=== PATIENT | male | born 1930 | race African-American/Black ===

== ENCOUNTER 2016-10-16 10:59 | Day surgery (SDC) | payer MEDICARE, OTHER ==
--- NOTE | ~2016-10-16 | OP ---
Record Of Operation [facility] [address] [place]. [address] NAME: VU CHAPA SR : 29 STATUS : [facility]#: [id number] AGE: 86 ADM/REG DATE : 10/16/16 MR#: [id number] REPORT SERV DATE: 10/16/16 DICTATED BY: MARISA GAITAN DATE: 10/16/16 REPORT STATUS : Draft TRANSCRIBED BY: MODL DATE: 10/16/16 DATE OF PROCEDURE: 10/16/2016 SURGEON: Marisa Gaitan M.D. GERIATRIC CASE MANAGER: None. PREPROCEDURE DIAGNOSIS: Critical limb ischemia of the left leg. POSTPROCEDURE DIAGNOSES: 1. Superficial femoral artery, popliteal, and proximal anterior tibial artery occlusion. 2. Posterior tibial artery occlusion. 3. Peroneal artery occlusion proximally with distal reconstitution. PROCEDURES PERFORMED: 1. Ultrasound-guided access to the right common femoral artery. 2. Aortogram. 3. Left lower extremity arteriogram. 4. Angioplasty of the anterior tibial artery using a 3 mm balloon. 5. Angioplasty of the SFA and popliteal artery using a 5 mm balloon. ANESTHESIA: MAC and local. SPECIMENS: None. BLOOD LOSS: Minimal. COMPLICATIONS: None. 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 He presented to the office with wounds on his left foot and obvious decreased pulses. He was offered arteriogram. Risks, benefits, and alternatives were discussed. They understood and wished to proceed. OPERATIVE COURSE: The patient was brought to the operating, placed in supine position on the operating room table. The patient had MAC anesthetic without complications. Bilateral groins were prepped and draped in sterile fashion. A time-out was performed. Identified the correct patient, procedure, and site. We began by using ultrasound to identify the right common femoral artery, was patent with [id number] disease. We anesthetized the skin and accessed the artery under ultrasound guidance. A copy of this picture was placed on the chart for review. Once we had access, a wire was passed through the abdominal aorta. The needle was removed. We placed a 5-Ethiopian sheath over the wire. We passed the UF catheter, placed it at the L1 vertebral level, and performed aortography demonstrating patency of the aortoiliac segment without flow-limiting stenosis in the aorta, common, or external iliac arteries. We then passed a wire and catheter down the left external iliac level, performed left lower extremity arteriogram. This demonstrated patency of the common Record Of Operation [facility] [address] [place]. [address] NAME: VU CHAPA SR : 29 STATUS : [facility] PAT#: [id number] AGE: 86 ADM/REG DATE : 10/16/16 MR#: [id number] REPORT SERV DATE: 10/16/16 DICTATED BY: MARISA GAITAN DATE: 10/16/16 REPORT STATUS : Draft TRANSCRIBED BY: MODL DATE: 10/16/16 femoral and profunda femoris artery with occlusion of the SFA, popliteal, and below-knee popliteal arteries. There was reconstitution through collaterals of the distal peroneal artery only. No other vessels were seen. We gave IV heparin and allowed adequate time for circulation. We sized up to a 6-Ethiopian up and over sheath placed at the left external iliac artery. We then brought a wire and trailblazer catheter and we were able to engage into the SFA. It passed relatively easy into the SFA and we were able to advance it with mild resistance distally in the SFA and popliteal artery. The wire and catheter were then advanced down into what appeared to be the trunk of the AT artery. Further arteriogram demonstrated this. We then advanced it further and performed an arteriogram through the sheath, which looked like we had actually progressed into a dormant anterior tibial artery. We then exchanged out for a V18 wire. We then used a 3 mm balloon to dilate up the proximal AT and distal popliteal artery. We then changed out for a 5 mm balloon and performed angioplasty of the SFA and popliteal artery. Repeat angiogram demonstrated brisk flow through the SFA system with minimal residual stenosis in the midsegment. This was not flow limiting. It did not require stenting. The popliteal artery was patent as was the anterior tibial artery. The anterior tibial artery had runoff all the way into the foot and actually met into the plantar arch. Satisfied with the intervention, wires and catheters were withdrawn. We wired out the sheath and brought up through the right side of the patient. Arteriogram demonstrated patency of the common femoral artery and good location of the sheath. A StarClose was placed with good hemostasis. No complications. The patient tolerated the procedure well. He was awakened and transferred to Recovery in stable condition. JSH/KRISTYNL Marisa Gaitan MD / [id number] CC: MD Eduardo Cortez M.D.
[~2016-10-16 10:59] MED LIST: ATV.5 PO; ATV1 PO; AZO-CRANBERY450 MG OR; BISR PR; BIST PO; C1 PO; C25 PO; DEPAK250ER PO; DSS PO; ELDERTONIC PO; FLAGYL250 MG PO; FLEET ENEMA; HIPREX1 GM OR; MOMUD PO; MSIMMR15 PO; MULTIVITAMI1 PO; NORCO1 TA1 PO; OXYCON20 PO; PLAVIX PO; PROTONIX PO; PYR100B PO; REMERON30 MG PO; SEROQUEL50 MG PO; VITAMIN C100 MG PO; VITAMIN C500 M3 PO
[2016-10-16 11:58] LABS: HEMATOCRIT 39.1 % (40.0-51.0)
[2016-10-16 12:04] LABS: INTERNATIONAL NORMAL RATI 1.2 UNITS (-)
[2016-10-16 12:11] LABS: BUN (BLOOD UREA NITROGEN) 11 MG/DL (6-23); CALCIUM, SERUM 8.6 MG/DL (8.5-10.4); CHLORIDE, SERUM 105 MMOL/L (96-112); CO2 (CARBON DIOXIDE) 32 MMOL/L (24-34); CREATININE 0.74 MG/DL (0.70-1.30); GFR AFRICAN AMERICAN 96 ML/MIN (>=60); GFR NON AFRICAN AMERICAN 83 ML/MIN (>=60); GLUCOSE, SERUM 73 MG/DL (60-99); POTASSIUM, SERUM 4.3 MMOL/L (3.5-5.3); SODIUM, SERUM 141 MMOL/L (135-148)
== END 2016-10-16 17:58 ==
LOC: SDC 10:59 → SSU1 15:55
PROVIDERS: Student in an Organized Health Care Education/Training Program
DX: I77.1 Stricture of artery (principal); I74.8 Embolism and thrombosis of other arteries; F03.90 Unspecified dementia, unspecified severity, without behavioral disturbance, psychotic disturbance, mood disturbance, and anxiety; I69.351 Hemiplegia and hemiparesis following cerebral infarction affecting right dominant side; M19.90 Unspecified osteoarthritis, unspecified site; F32.9 Major depressive disorder, single episode, unspecified; F41.9 Anxiety disorder, unspecified; D64.9 Anemia, unspecified; Z88.8 Allergy status to other drugs, medicaments and biological substances; Z86.73 Personal history of transient ischemic attack (TIA), and cerebral infarction without residual deficits
CPT/HCPCS: 37224; 37228; 75625; 75710; 75774; 76937; 80048; 85014; 85018; 85610; 93005; A9270-GY; C1725; C1769; C1894; J0690; J2250; J2370; J3010; Q9967

== ENCOUNTER 2017-02-16 15:02 | Inpatient (IN) | payer MEDICARE, OTHER ==
[2017-02-15 09:34] LABS: HEMOGLOBIN 10.7 g/dL (13.6-17.8); MEAN CORPUS HGB CONC 29.9 g/dL (32.0-36.0); MEAN CORPUSCULAR HEMOGLOB 25.2 pg (26.0-34.0); MEAN CORPUSCULAR VOLUME 84.4 fL (80-100); MEAN PLATELET VOLUME 8.9 fL (9.2-13.0); PLATELET COUNT 448 10/3/uL (150-400); RBC DISTRIBUTION WIDTH 15.4 % (12.0-16.0); RED CELL COUNT 4.24 10/6/uL (4.7-6.1)
[2017-02-15 09:37] LABS: CALCIUM, SERUM 8.3 MG/DL (8.5-10.4); CHLORIDE, SERUM 108 MMOL/L (96-112); CO2 (CARBON DIOXIDE) 28 MMOL/L (24-34); CREATININE 0.64 MG/DL (0.70-1.30); GFR AFRICAN AMERICAN 102 ML/MIN (>=60); GFR NON AFRICAN AMERICAN 88 ML/MIN (>=60); HEMATOCRIT 35.8 % (40.0-51.0); MANUAL DIFF YES %; SODIUM, SERUM 145 MMOL/L (135-148); WHITE BLOOD CELLS 24.3 10/3/uL (4.5-10.5)
[2017-02-15 09:38] LABS: BUN (BLOOD UREA NITROGEN) 21 MG/DL (6-23); GLUCOSE, SERUM 94 MG/DL (60-99)
[2017-02-15 10:05] LABS: BAND NEUTROPHILS 1 %; LYMPHOCYTES 6 %; LYMPHOCYTES ABSOLUTE (CALC) 1.46 10/3/uL (0.67-4.30); MONOCYTES 7 %; NEUTROPHILS ABSOLUTE (CALC) 21.14 10/3/uL (2.02-8.40); PLATELET ESTIMATE SLT INC (ADEQUATE); SEGMENTED NEUTROPHIL (0) 86 %; TOTAL NUCLEATED CELLS 100
[2017-02-15 10:06] LABS: HYPOCHROMIA 1+ (3-10/OIF) (0-2/OIF)
[2017-02-15 10:07] LABS: ELLIPTOCYTES 1+ (3-10/OIF) (0-2/OIF)
[2017-02-15 10:28] LABS: ASCORBIC ACID (UR NOT ORDER) NEG (NEG); BILIRUBIN, URINE NEGATIVE (NEG); KETONE, URINE NEGATIVE (NEG)
[~2017-02-16] VITALS: Ht 152.4 cm; Wt 39.0 kg
--- NOTE | ~2017-02-16 | DS ---
Discharge Summary [facility] [address] [place]. [address] NAME: BARRON CHAPA SR : 29 STATUS : DIS IN PAT#: [id number] AGE: 87 ADM/REG DATE : 02/16/17 MR#: [id number] REPORT SERV DATE: 02/24/17 DICTATED BY: JOCE ASKEW DATE: 02/23/17 REPORT STATUS : Draft TRANSCRIBED BY: MODL DATE: 02/23/17 ADMISSION DATE: 02/16/2017 DISCHARGE DATE: 02/23/2017 Mr. Chapa is an 87-year-old gentleman with a history of CVA with resultant left-sided hemiparesis, currently nonverbal. Also, the patient has a history of right above knee amputation and chronic neurogenic bladder. The patient was brought to the hospital from the [facility] facility due to abnormal labs. For further details, please refer to H and P dictated by Dr. Cuellar on 02/16/2017. I assumed care of the patient on 02/20/2017. At the time of my assumption of care, the patient was noted to meet sepsis criteria. The patient was currently on antibiotics. The patient, who had initially presented with hyponatremia, his hyponatremia had resolved. Also, his INR was supratherapeutic. Upon the first time of my evaluation, the patient appeared to be at his baseline. Was on supplemental oxygen saturating appropriately. On the night of 02/20/2017, during the night, the patient developed significant hypoxic respiratory failure. The patient was evaluated by the practice clinician and ICU was subsequently consulted. 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 Per evaluation of the ICU attending, pursued that aggressive medical management will be detrimental to the patient. Goals of care were discussed by Dr. Mason with the patient's son who changed the patient's code status to DNR/DNI and opted for comfort measures. Upon his resumption of care in the morning of 02/21/2017, the patient was observed. The patient continued to require high level oxygen without Vapotherm. His status did not improve and so on 02/22/2017 I had a consultation with the patient's son regarding goals of care again and he was amenable to refer the patient to hospice. The patient was evaluated by Hospice. At the time of their evaluation, the patient was Vapotherm. Given the high level of oxygen requirement our recommendations were for the patient to be attempted to be weaned off Vapotherm, at which point, the patient could be transferred to Hospice. The patient has been successfully weaned off Vapotherm. He is currently on a non-rebreather and has been accepted by Hospice. Care will now be transferred to Hospice and the patient will be to transitioned to Hospice. Greater than 30 minutes was spent discharging the patient. Of note discharge MAR and discharge planning per Hospice. KARISSA/CLEMENT Joce Askew MD / [id number] CC: Joce Askew MD
--- NOTE | ~2017-02-16 | HP ---
History And Physical [place] [id number] [facility] [place]. [address] NAME: BARRON CHAPA SR : 29 STATUS : ADM IN [facility]#: [id number] AGE: 86 ADM/REG DATE : 02/16/17 MR#: [id number] REPORT SERV DATE: 02/16/17 DICTATED BY: ATA TORO DATE: 02/16/17 REPORT STATUS : Draft TRANSCRIBED BY: MODL DATE: 02/16/17 DATE OF ADMISSION: 02/16/2017 CHIEF COMPLAINT: Abnormal labs seen at the nursing facility and patient was sent to the ER. HISTORY OF PRESENT ILLNESS: This is an 86-year-old male, a resident at [facility] after he had multi-infarct dementia and left-sided CVA with hemiparalysis a long time ago. He had routine blood work and urinalysis done in the skilled nursing. They found he had a urinary tract infection and coagulopathy, and the patient was transferred here. In the emergency room, initial workup revealed coagulopathy with a protime of 65.1 and an INR of 7.8. [place] [address], and Hospitalist Service is asked to admit him for further evaluation and treatment. At the time of my evaluation, Mr. Chapa, although responds to simple questions, he is not oriented to time, place, or person. He has dementia. He is unable to give any reliable history or review of systems. The paperwork, which accompanied the patient from the facility only described abnormal labs as the reason for transfer. No other next of kin is available either. PAST MEDICAL HISTORY: Significant for left-sided CVA with resultant hemiparalysis and hemiparesis for a long time. He also has multi-infarct dementia and had been seen by Dr. Ryan Garrido in the past. He has chronic decubitus ulcers, benign prostatic hypertrophy, right above-knee amputation, and a chronic neurogenic bladder with suprapubic catheter in place as well. SOCIAL HISTORY: No recent history of smoking, alcohol use, or recreational drug use. FAMILY HISTORY: Noncontributory. MEDICATIONS: At home were reviewed by me in the chart today and reordered by me. REVIEW OF SYSTEMS: Unable to be obtained due to the patient's dementia. PHYSICAL EXAMINATION: GENERAL: This is an 86-year-old not in any acute distress. HEENT: His head appears to be atraumatic, normocephalic. Pupils were equal, reacting to light and accommodating. External ocular muscles were intact. Membranes were moist and pink. Sclerae are nonicteric. NECK: Supple with no jugular venous distention, lymphadenopathy, or thyromegaly. LUNGS: Clear to auscultation with no wheezes, rubs, or crackles. HEART: Heart sounds were regular with no murmurs, rubs, or gallops. ABDOMEN: Soft and nontender. Bowel sounds are present. EXTREMITIES: Show contractures including the rest of his body, especially the spine. He does move his left leg. VITAL SIGNS: Today showed a temperature of 97.6, pulse 70, respirations 12 a minute, blood History And Physical [address] [address] NAME: BARRON CHAPA SR : 29 STATUS : ADM IN [facility]#: [id number] AGE: 86 ADM/REG DATE : 02/16/17 MR#: [id number] REPORT SERV DATE: 02/16/17 DICTATED BY: ATA TORO DATE: 02/16/17 REPORT STATUS : Draft TRANSCRIBED BY: CLEMENT DATE: 02/16/17 pressure was 151/86 oxygen saturations were 98% on 2 L via nasal cannula. LABORATORY DATA: Reviewed on the [employer] system showed a normal CMP with a blood glucose of 138, calcium was 8.1, magnesium 2.4. His troponin today was 0.21. Lactate was 1.1. [place] a [place] [address], hemoglobin and hematocrit were stable at 11.4 and 37.6, platelet count was 453,000. His prothrombin time was 65.1 with an INR of 7.8. Urinalysis showed moderate leukocyte esterase, nitrite was negative. There were 11 wbc's. Films of the chest x-ray were reviewed by me on the PACS today and interpreted by me. There are no acute pulmonary infiltrates or lobar consolidations. No pleural effusions. There is some atelectasis in the right base. There is chronically elevated right hemidiaphragm. IMPRESSION: 1. Urinary tract infection. 2. Decubitus ulcer, chronic. 3. Coagulopathy. 4. Multi-infarct dementia. 5. Left-sided cerebrovascular accident in the past with hemiparesis and hemiparalysis. 6. Gastroesophageal reflux disease. 7. Chronic indwelling suprapubic catheter. 8. Benign prostatic hypertrophy. 9. Seizure disorder. 10.Right above-knee amputation. PLAN: We will admit Mr. Chapa to the Hospitalist Service with telemetry for close monitoring. He is a full code. After cultures are obtained, we will start him on empiric IV antibiotics, check his procalcitonin level. Reviewing his past cultures from urine sample, we will start him on cefepime and vancomycin, and follow Gram stains. We will start him on IV fluids for volume resuscitation including a bolus and monitor his chemistry and CBC in the morning. We will also give him vitamin K intravenously x1 now. Follow PT/INR in the morning. We will hold his warfarin of course. We will follow serial H and H in the morning, which appears to be stable at this point. We will also get Wound Care to evaluate his decubitus and offer help in managing. We will continue all other medications and treatments at this time. No next of kin at bedside. Hospitalist Service will be following him during his stay here. /CLEMENT Ata Toro M.D. / [id number] CC: History And Physical [address] [address] NAME: BARRON CHAPA SR : 29 STATUS : ADM IN [facility]#: [id number] AGE: 86 ADM/REG DATE : 02/16/17 MR#: [id number] REPORT SERV DATE: 02/16/17 DICTATED BY: ATA TORO DATE: 02/16/17 REPORT STATUS : Draft TRANSCRIBED BY: CLEMENT DATE: 02/16/17 Eduardo Mendoza M.D.
[2017-02-16 11:06] LABS: INTERNATIONAL NORMAL RATI 7.3 UNITS (-); PROTIME (NOT ORD) 61.7 SEC (12.0-14.5)
[2017-02-16 17:30] LABS: BASOPHILS 0.6 %; BASOPHILS ABSOLUTE 0.14 10/3/uL (0.0-0.16); EOSINOPHILS 0.5 %; EOSINOPHILS ABSOLUTE 0.12 10/3/uL (0.0-0.53); HEMATOCRIT 37.6 % (40.0-51.0); HEMOGLOBIN 11.4 g/dL (13.6-17.8); IMMATURE GRANULOCYTES 2.1 %; IMMATURE GRANULOCYTES ABSOLUTE 0.49 10/3/uL (0.0-0.11); LYMPHOCYTES 5.7 %; LYMPHOCYTES ABSOLUTE 1.32 10/3/uL (0.67-4.30); MEAN CORPUS HGB CONC 30.3 g/dL (32.0-36.0); MEAN CORPUSCULAR HEMOGLOB 25.5 pg (26.0-34.0); MEAN CORPUSCULAR VOLUME 84.1 fL (80-100); MEAN PLATELET VOLUME 8.9 fL (9.2-13.0); MONOCYTES 5.9 %; MONOCYTES ABSOLUTE 1.36 10/3/uL (0.21-1.20); NEUTROPHILS 85.2 %; NEUTROPHILS ABSOLUTE 19.71 10/3/uL (2.02-8.40); PLATELET COUNT 453 10/3/uL (150-400); RBC DISTRIBUTION WIDTH 15.6 % (12.0-16.0); RED CELL COUNT 4.47 10/6/uL (4.7-6.1); WHITE BLOOD CELLS 23.1 10/3/uL (4.5-10.5)
[2017-02-16 17:31] LABS: MANUAL DIFF NO %
[2017-02-16 17:38] LABS: PARTIAL THROMBO TIME 84.7 SEC (22.5-37.2)
[2017-02-16] MEDS ORDERED: DEPAKOTEER PO (17:43)
[2017-02-16] MEDS ORDERED: REM15 PO (17:45)
[2017-02-16] MEDS ORDERED: BIST PO (17:45)
[2017-02-16 17:46] LABS: ALBUMIN 2.3 G/DL (3.5-5.0); ALKALINE PHOSPHATASE 67 U/L (45-117); CALCIUM, SERUM 8.1 MG/DL (8.5-10.4); CHLORIDE, SERUM 110 MMOL/L (96-112); CO2 (CARBON DIOXIDE) 28 MMOL/L (24-34); DEPAKENE (VALPROIC ACID) 40.5 MCG/ML (50.0-100.0); GFR AFRICAN AMERICAN 98 ML/MIN (>=60); GFR NON AFRICAN AMERICAN 85 ML/MIN (>=60); GLUCOSE, SERUM 138 MG/DL (60-99); SGPT(ALT) 12 U/L (5-65); SODIUM, SERUM 145 MMOL/L (135-148); TOTAL BILIRUBIN 0.6 MG/DL (0-1.2); TOTAL PROTEIN 7.9 G/DL (6.0-8.5)
[2017-02-16] MEDS ORDERED: MSCONT15 PO (17:46)
[2017-02-16] MEDS ORDERED: MULTIVITAMI1 PO (17:46)
[2017-02-16 17:47] LABS: BUN (BLOOD UREA NITROGEN) 20 MG/DL (6-23); CHEST PAIN PROFILE TAT 0 Hrs 21 Mins; POTASSIUM, SERUM 4.6 MMOL/L (3.5-5.3); TROPONIN I 0.21 NG/ML (<0.05)
[2017-02-16 17:48] LABS: CPK 104 U/L (0-200); DIRECT BILIRUBIN 0.2 MG/DL (0.0-0.4); INDIRECT BILIRUBIN(NOT ORDER) 0.4 MG/DL (0.1-0.9); LACTATE 1.1 MMOL/L (0.3-2.4); SGOT(AST) 35 U/L (5-40)
[2017-02-16 17:51] LABS: INTERNATIONAL NORMAL RATI 7.8 UNITS (-); PROTIME (NOT ORD) 65.1 SEC (12.0-14.5)
[2017-02-16] MEDS ORDERED: C1 PO (17:51)
[2017-02-16] MEDS ORDERED: BISR PR (17:55)
[2017-02-16] MEDS ORDERED: ATV.5 PO (17:56)
[2017-02-16] MEDS ORDERED: MOMUD PO (17:57)
[2017-02-16 18:02] LABS: ASCORBIC ACID (UR NOT ORDER) NEG (NEG); BILIRUBIN, URINE MODERATE (NEG); ER URINALYSIS TAT 0 Hrs 27 Mins; KETONE, URINE TRACE MG/DL (NEG); LEUKOCYTE ESTERASE(NOT OR MOD (NEG); NITRITE (URINE) NEG (NEG); WBC (NOT ORDERED) (RFLEX) 11 (0-5)
[2017-02-16 21:33] LABS: PROCALCITONIN 2.84 ng/mL (<0.5)
[2017-02-17 05:16] LABS: EOSINOPHILS 1.5 %; HEMOGLOBIN 10.8 g/dL (13.6-17.8); IMMATURE GRANULOCYTES 0.4 %; IMMATURE GRANULOCYTES ABSOLUTE 0.08 10/3/uL (0.0-0.11); LYMPHOCYTES 7.9 %; LYMPHOCYTES ABSOLUTE 1.58 10/3/uL (0.67-4.30); MEAN CORPUSCULAR HEMOGLOB 25.5 pg (26.0-34.0); MEAN CORPUSCULAR VOLUME 84.9 fL (80-100); MEAN PLATELET VOLUME 9.1 fL (9.2-13.0); MONOCYTES 6.6 %; MONOCYTES ABSOLUTE 1.32 10/3/uL (0.21-1.20); NEUTROPHILS 82.6 %; NEUTROPHILS ABSOLUTE 16.62 10/3/uL (2.02-8.40); PLATELET COUNT 436 10/3/uL (150-400); RBC DISTRIBUTION WIDTH 15.7 % (12.0-16.0); RED CELL COUNT 4.24 10/6/uL (4.7-6.1); WHITE BLOOD CELLS 20.1 10/3/uL (4.5-10.5)
[2017-02-17 05:19] LABS: MANUAL DIFF NO %
[2017-02-17 05:24] LABS: BUN (BLOOD UREA NITROGEN) 19 MG/DL (6-23); CALCIUM, SERUM 7.7 MG/DL (8.5-10.4); CHLORIDE, SERUM 114 MMOL/L (96-112); CO2 (CARBON DIOXIDE) 27 MMOL/L (24-34); CREATININE 0.52 MG/DL (0.70-1.30); GFR AFRICAN AMERICAN 111 ML/MIN (>=60); GFR NON AFRICAN AMERICAN 96 ML/MIN (>=60); PHOSPHORUS, SERUM 2.8 MG/DL (2.5-4.5); POTASSIUM, SERUM 3.9 MMOL/L (3.5-5.3); SODIUM, SERUM 148 MMOL/L (135-148)
[2017-02-17 05:25] LABS: INTERNATIONAL NORMAL RATI 7.8 UNITS (-)
[2017-02-17 05:26] LABS: GLUCOSE, SERUM 91 MG/DL (60-99)
[2017-02-18 04:28] LABS: BASOPHILS 0.9 %; BASOPHILS ABSOLUTE 0.17 10/3/uL (0.0-0.16); EOSINOPHILS 2.5 %; HEMATOCRIT 35.9 % (40.0-51.0); HEMOGLOBIN 10.5 g/dL (13.6-17.8); IMMATURE GRANULOCYTES 0.4 %; IMMATURE GRANULOCYTES ABSOLUTE 0.07 10/3/uL (0.0-0.11); LYMPHOCYTES 7.6 %; LYMPHOCYTES ABSOLUTE 1.51 10/3/uL (0.67-4.30); MEAN CORPUS HGB CONC 29.2 g/dL (32.0-36.0); MEAN CORPUSCULAR HEMOGLOB 25.4 pg (26.0-34.0); MEAN CORPUSCULAR VOLUME 86.9 fL (80-100); MEAN PLATELET VOLUME 9.3 fL (9.2-13.0); MONOCYTES 5.4 %; MONOCYTES ABSOLUTE 1.07 10/3/uL (0.21-1.20); NEUTROPHILS 83.2 %; NEUTROPHILS ABSOLUTE 16.51 10/3/uL (2.02-8.40); PLATELET COUNT 442 10/3/uL (150-400); RBC DISTRIBUTION WIDTH 15.6 % (12.0-16.0); RED CELL COUNT 4.13 10/6/uL (4.7-6.1); WHITE BLOOD CELLS 19.8 10/3/uL (4.5-10.5)
[2017-02-18 04:31] LABS: MANUAL DIFF NO %
[2017-02-18 04:45] LABS: T PROTEIN (ELECT)(NOT OR 5.9 G/DL (6.0-8.5)
[2017-02-18 05:06] LABS: A/G RATIO 0.4 (0.7-1.9); ALBUMIN 1.9 G/DL (3.5-5.0); ALKALINE PHOSPHATASE 52 U/L (45-117); BUN (BLOOD UREA NITROGEN) 13 MG/DL (6-23); CALCIUM, SERUM 7.5 MG/DL (8.5-10.4); CHLORIDE, SERUM 115 MMOL/L (96-112); CO2 (CARBON DIOXIDE) 25 MMOL/L (24-34); CREATININE 0.49 MG/DL (0.70-1.30); FERRITIN 206 NG/ML (26-388); GFR AFRICAN AMERICAN 114 ML/MIN (>=60); GFR NON AFRICAN AMERICAN 98 ML/MIN (>=60); GLOBULIN 4.3 G/DL (2.5-4.1); GLUCOSE, SERUM 88 MG/DL (60-99); POTASSIUM, SERUM 3.7 MMOL/L (3.5-5.3); PREALBUMIN 6.2 MG/DL (17.0-43.0); SGOT(AST) 12 U/L (5-40); SGPT(ALT) 10 U/L (5-65); SODIUM, SERUM 149 MMOL/L (135-148); TOTAL BILIRUBIN 0.4 MG/DL (0-1.2); TOTAL PROTEIN 6.2 G/DL (6.0-8.5); TROPONIN I 0.15 NG/ML (<0.05)
[2017-02-18 10:33] LABS: INTERNATIONAL NORMAL RATI 3.7 UNITS (-); PROTIME (NOT ORD) 36.4 SEC (12.0-14.5)
[2017-02-19 03:15] LABS: BASOPHILS 0.5 %; BASOPHILS ABSOLUTE 0.08 10/3/uL (0.0-0.16); EOSINOPHILS 2.4 %; EOSINOPHILS ABSOLUTE 0.41 10/3/uL (0.0-0.53); HEMATOCRIT 35.6 % (40.0-51.0); HEMOGLOBIN 10.4 g/dL (13.6-17.8); IMMATURE GRANULOCYTES 0.3 %; IMMATURE GRANULOCYTES ABSOLUTE 0.06 10/3/uL (0.0-0.11); LYMPHOCYTES ABSOLUTE 1.37 10/3/uL (0.67-4.30); MEAN CORPUS HGB CONC 29.2 g/dL (32.0-36.0); MEAN CORPUSCULAR VOLUME 85.6 fL (80-100); MEAN PLATELET VOLUME 8.8 fL (9.2-13.0); MONOCYTES 5.2 %; NEUTROPHILS 83.6 %; NEUTROPHILS ABSOLUTE 14.34 10/3/uL (2.02-8.40); PLATELET COUNT 380 10/3/uL (150-400); RBC DISTRIBUTION WIDTH 15.6 % (12.0-16.0); RED CELL COUNT 4.16 10/6/uL (4.7-6.1); WHITE BLOOD CELLS 17.2 10/3/uL (4.5-10.5)
[2017-02-19 03:16] LABS: MANUAL DIFF NO %
[2017-02-19 03:23] LABS: INTERNATIONAL NORMAL RATI 4.4 UNITS (-)
[2017-02-19 03:27] LABS: PROTIME (NOT ORD) 41.9 SEC (12.0-14.5)
[2017-02-19 03:33] LABS: BUN (BLOOD UREA NITROGEN) 16 MG/DL (6-23); CALCIUM, SERUM 7.8 MG/DL (8.5-10.4); CHLORIDE, SERUM 109 MMOL/L (96-112); CO2 (CARBON DIOXIDE) 29 MMOL/L (24-34); CREATININE 0.58 MG/DL (0.70-1.30); GFR AFRICAN AMERICAN 106 ML/MIN (>=60); GFR NON AFRICAN AMERICAN 92 ML/MIN (>=60); SODIUM, SERUM 143 MMOL/L (135-148); VANCOMYCIN TROUGH 6.5 MCG/ML (10.0-20.0)
[2017-02-19 03:34] LABS: GLUCOSE, SERUM 176 MG/DL (60-99)
[2017-02-19 12:05] LABS: A/G 0.65 RATIO (0.9-2.10); ALB RELATIVE % 39.4 % (60.0-89.0); ALBUMIN (ELECTRO) 2.32 GM/DL (3.2-5.5); ALPHA 2 (ELECTRO) 1.03 GM/DL (0.5-1.10); ALPHA 2 RELAT % 17.4 % (4.5-26.0); BETA GLOBULIN (SPE) 0.74 GM/DL (0.60-1.30); BETA RELATIVE % 12.5 % (9.0-22.0); GAMMA GLOBULIN (SPE) 1.52 G/DL (0.70-1.60); GAMMA RELAT % 25.7 % (6.0-22.0)
[2017-02-20 05:22] LABS: BASOPHILS 0.3 %; BASOPHILS ABSOLUTE 0.05 10/3/uL (0.0-0.16); EOSINOPHILS 2.1 %; EOSINOPHILS ABSOLUTE 0.42 10/3/uL (0.0-0.53); HEMATOCRIT 34.8 % (40.0-51.0); HEMOGLOBIN 10.6 g/dL (13.6-17.8); IMMATURE GRANULOCYTES 0.4 %; IMMATURE GRANULOCYTES ABSOLUTE 0.08 10/3/uL (0.0-0.11); LYMPHOCYTES 4.5 %; MEAN CORPUS HGB CONC 30.5 g/dL (32.0-36.0); MEAN CORPUSCULAR HEMOGLOB 25.9 pg (26.0-34.0); MEAN CORPUSCULAR VOLUME 85.1 fL (80-100); MEAN PLATELET VOLUME 9.2 fL (9.2-13.0); MONOCYTES 8.7 %; MONOCYTES ABSOLUTE 1.73 10/3/uL (0.21-1.20); NEUTROPHILS ABSOLUTE 16.74 10/3/uL (2.02-8.40); PLATELET COUNT 335 10/3/uL (150-400); RED CELL COUNT 4.09 10/6/uL (4.7-6.1); WHITE BLOOD CELLS 19.9 10/3/uL (4.5-10.5)
[2017-02-20 05:24] LABS: MANUAL DIFF NO %
[2017-02-20 06:38] LABS: BUN (BLOOD UREA NITROGEN) 11 MG/DL (6-23); CALCIUM, SERUM 7.7 MG/DL (8.5-10.4); CHLORIDE, SERUM 105 MMOL/L (96-112); CO2 (CARBON DIOXIDE) 26 MMOL/L (24-34); CREATININE 0.58 MG/DL (0.70-1.30); GFR AFRICAN AMERICAN 106 ML/MIN (>=60); GFR NON AFRICAN AMERICAN 92 ML/MIN (>=60); GLUCOSE, SERUM 100 MG/DL (60-99); POTASSIUM, SERUM 3.7 MMOL/L (3.5-5.3); SODIUM, SERUM 139 MMOL/L (135-148)
[2017-02-20 20:59] LABS: BE (BASE EXCESS) 2.5 MEQ/L (0 +/- 2.5); CARBOXYHEMOGLOBIN 0.7 % (0-3); DEVICE NC; HCO3 (ACTUAL BICARBONATE) 24.8 MEQ/L (23-27); HEMOBLOGIN CONTENT 11.6 G/DL (14-18); INSTRUMENT SERIAL # 8083; METHEMOGLOBIN 0.2 % (0-3); O2 CONTENT 15.2 VOL% (18-24); OPERATOR ID 17370; PCO2 (CO2 TENSION) 31 MMHG (35-45); PO2 (O2 TENSION) 61 MMHG (79-93); SAMPLE Arterial; pH 7.52 (7.37-7.43)
[2017-02-21 05:07] LABS: HEMATOCRIT 34.1 % (40.0-51.0); HEMOGLOBIN 10.4 g/dL (13.6-17.8); MEAN CORPUS HGB CONC 30.5 g/dL (32.0-36.0); MEAN CORPUSCULAR HEMOGLOB 25.5 pg (26.0-34.0); MEAN CORPUSCULAR VOLUME 83.6 fL (80-100); MEAN PLATELET VOLUME 9.3 fL (9.2-13.0); PLATELET COUNT 397 10/3/uL (150-400); RBC DISTRIBUTION WIDTH 16.4 % (12.0-16.0); RED CELL COUNT 4.08 10/6/uL (4.7-6.1)
[2017-02-21 05:08] LABS: MANUAL DIFF YES %; WHITE BLOOD CELLS 26.6 10/3/uL (4.5-10.5)
[2017-02-21 05:20] LABS: A/G RATIO 0.5 (0.7-1.9); ALBUMIN 2.2 G/DL (3.5-5.0); ALKALINE PHOSPHATASE 59 U/L (45-117); BUN (BLOOD UREA NITROGEN) 9 MG/DL (6-23); CALCIUM, SERUM 7.9 MG/DL (8.5-10.4); CHLORIDE, SERUM 103 MMOL/L (96-112); CO2 (CARBON DIOXIDE) 28 MMOL/L (24-34); CREATININE 0.67 MG/DL (0.70-1.30); GFR AFRICAN AMERICAN 100 ML/MIN (>=60); GFR NON AFRICAN AMERICAN 86 ML/MIN (>=60); GLOBULIN 4.5 G/DL (2.5-4.1); POTASSIUM, SERUM 3.7 MMOL/L (3.5-5.3); SGOT(AST) 17 U/L (5-40); SGPT(ALT) 9 U/L (5-65); SODIUM, SERUM 140 MMOL/L (135-148); TOTAL BILIRUBIN 0.7 MG/DL (0-1.2); TOTAL PROTEIN 6.7 G/DL (6.0-8.5)
[2017-02-21 05:22] LABS: GLUCOSE, SERUM 141 MG/DL (60-99)
[2017-02-21 06:22] LABS: BAND NEUTROPHILS 23 %; LYMPHOCYTES 2 %; LYMPHOCYTES ABSOLUTE (CALC) 0.53 10/3/uL (0.67-4.30); MONOCYTES 2 %; MONOCYTES ABSOLUTE (CALC) 0.53 10/3/uL (0.21-1.20); NEUTROPHILS ABSOLUTE (CALC) 25.54 10/3/uL (2.02-8.40); PLATELET ESTIMATE ADQ (ADEQUATE); SEGMENTED NEUTROPHIL (0) 73 %; TOTAL NUCLEATED CELLS 100
[2017-02-21 06:23] LABS: POIKILOCYTOSIS 1+ (5-10/OIF) (0-5/OIF); POLYCHROMASIA 1+ (2-5/OIF) (0-1/OIF); SCHISTOCYTES OCC (0-2/OIF); TOXIC GRANULATION 1+
== END 2017-02-23 16:40 | disposition hospice, inpatient (51) | DRG 698 ==
LOC: ER 15:02 → 6NO 18:52 → CCU 02-20 23:27 → 6NO 02-20 23:53
PROVIDERS: Emergency Medicine; Hospitalist; Internal Medicine; Internal Medicine Pulmonary Disease; Physical Medicine & Rehabilitation
DX: T83.511A Infection and inflammatory reaction due to indwelling urethral catheter, initial encounter (principal); A41.9 Sepsis, unspecified organism; J96.91 Respiratory failure, unspecified with hypoxia; E43 Unspecified severe protein-calorie malnutrition; J90 Pleural effusion, not elsewhere classified; I69.354 Hemiplegia and hemiparesis following cerebral infarction affecting left non-dominant side; E87.1 Hypo-osmolality and hyponatremia; I24.8 Other forms of acute ischemic heart disease; Z68.1 Body mass index [BMI] 19.9 or less, adult; N39.0 Urinary tract infection, site not specified; F01.50 Vascular dementia, unspecified severity, without behavioral disturbance, psychotic disturbance, mood disturbance, and anxiety; Z66 Do not resuscitate; Z51.5 Encounter for palliative care; N40.0 Benign prostatic hyperplasia without lower urinary tract symptoms; G40.909 Epilepsy, unspecified, not intractable, without status epilepticus; K21.9 Gastro-esophageal reflux disease without esophagitis; I69.398 Other sequelae of cerebral infarction; N31.9 Neuromuscular dysfunction of bladder, unspecified; J98.6 Disorders of diaphragm; G89.29 Other chronic pain; Y84.6 Urinary catheterization as the cause of abnormal reaction of the patient, or of later complication, without mention of misadventure at the time of the procedure; L89.892 Pressure ulcer of other site, stage 2; I73.9 Peripheral vascular disease, unspecified; D64.9 Anemia, unspecified; Z89.611 Acquired absence of right leg above knee
CPT/HCPCS: 36600; 71010; 80048; 80053; 80076; 80164; 80202; 81001; 82330; 82550; 82607; 82728; 82803; 82805; 82947; 83605; 83690; 83735; 83880; 84100; 84132; 84134; 84145; 84155; 84165; 84295; 84484; 85014; 85025; 85610; 85730; 87040; 87077; 87086; 87186; 92610-GN; 93005; 94640; 96374; 99285; A9270-GY; G8996-CN-GN; G8997-CN-GN; G8998-CN-GN; J0690; J0692; J1940; J3370; J3411